=== PATIENT | female | born 1990 | race Caucasian/White ===

== ENCOUNTER → 2018-01-27 09:58 | Outpatient (CLI) | payer OTHER, SELFPAY ==
[2018-01-27 10:38] LABS: Appearance Urine UA CLEAR; Bilirubin Urine UA NEGATIVE (NEGATIVE); Color Urine UA YELLOW; Glucose Urine UA NEGATIVE (Normal); Ketones Urine UA NEGATIVE (NEGATIVE); Leukocyte Esterase Urine UA NEGATIVE (NEGATIVE); Nitrite Urine UA Negative (Negative); Occult Blood Urine UA NEGATIVE (Negative); Protein Urine UA NEGATIVE (Negative); Specific Gravity Urine UA <=1.005 (1.000-1.035); Urobilinogen Urine UA 0.2 E.U./dL (0.2); pH Urine UA 6.5 (4.5-8.0)
[2018-01-27 10:54] LABS: Hemoglobin A1C% w Est Avg Glu 5.2 % (4.0-6.0)
[2018-01-27 11:00] LABS: Add Manual Diff / Slide Review NO; Basophils Percent Auto 0.5 % (0-2); Eosinophils Percent Auto 0.6 % (2-4); Hematocrit 38.9 % (36-46); Hemoglobin 13.5 g/dL (12.0-16.0); Lymphocytes Percent Auto 30.9 % (25-40); Mean Corpuscular HGB Conc 34.6 % (30-36); Mean Corpuscular Hemoglobin 30.8 PG (26-34); Mean Corpuscular Volume 88.9 fL (80-100); Neutrophils Absolute Auto 5000 /uL (3000-5900); Platelet Count 234 X10^3/uL (150-400); Red Blood Cell Count 4.38 X10^6/uL (4.0-5.2); Red Cell Distribution Width 12.7 % (11.6-14.8); White Blood Cell Count 8.2 X10^3/uL (4.5-11.0)
[2018-01-27 11:20] LABS: Glucose 87 mg/dL (70-100)
[2018-01-27 11:51] LABS: Hepatitis B Surface Antigen NEGATIVE s/c (NEGATIVE); Rubella Antibody IgG 11.8 IU/mL (>15)
[2018-01-27 12:14] LABS: HIV 1 and 2 Antibody NEGATIVE (NEGATIVE); Hep C Virus Ab w/Reflex Quant NEGATIVE s/c (NEGATIVE)
[2018-01-31 14:25] LABS: HSV 2 IGG AB < 0.90 index (< 0.90); HSV1IGG < 0.90 index (< 0.90)
[2018-02-02 12:23] LABS: Rapid Plasma Reagin NON-REACTIVE
== END ==
DX: Z34.01 Encounter for supervision of normal first pregnancy, first trimester (principal); Z3A.01 Less than 8 weeks gestation of pregnancy
CPT/HCPCS: 36415; 80055; 81003; 82947; 83036; 86695; 86696; 86703; 86787; 86803; 86850; 86900; 86901; 87086

== ENCOUNTER → 2018-02-27 11:25 | Outpatient (CLI) | payer OTHER, MEDICAID, SELFPAY | DX: Z3A.12 12 weeks gestation of pregnancy (principal) | CPT/HCPCS: 36415; 84163; 84702 ==

== ENCOUNTER → 2018-03-27 10:52 | Outpatient (CLI) | payer OTHER, SELFPAY ==
[2018-03-29 14:05] LABS: Sequential Screen 2nd Trimeste SCREEN NEGATIVE
== END ==
DX: Z34.02 Encounter for supervision of normal first pregnancy, second trimester (principal)
CPT/HCPCS: 36415; 86336

== ENCOUNTER 2018-04-14 16:08 | Emergency (ER) | payer OTHER, MEDICAID, SELFPAY ==
[2018-04-14 16:15] VITALS: BP 101/63; PULSE 57; RESP 16; O2SAT 100; BMI 22.4
--- NOTE | 2018-04-14 16:41 | PC.NURSE ---
generalized abd pain/cramping with nausea/vomiting/diarrhea began 5 days ago reports approx 19 wks preg denies dysuria/spotting/injury/fever abd difusely tender, mild
--- NOTE | 2018-04-14 16:53 | ED_ITS ---
HPI - Nausea/Vomiting/Diarrhea <EMPERATRIZ Ro - Last Filed: 04/14/18 22:28> General Chief complaint: Nausea/Vomiting/Diarrhea Stated complaint: 19 WKS STOMACH CRAMPING HAD FOOD POS Time Seen by Provider: 04/14/18 16:41 Source: patient Mode of arrival: ambulatory Limitations: no limitations History of Present Illness HPI Narrative: 27-year-old healthy female that is a nonsmoker currently 1 para 0 here for complaint of nausea vomiting and diarrhea over the past few days. She reports having lower abdominal pain to suprapubic region. She denies having any recent fever or chills. She denies any flank pain. No urinary symptoms. Decreased p.o. intake due to nausea and vomiting. She denies any vaginal discharge or bleeding. She is currently being followed by Dr. Attila CAMARGO. She denies any complications with the . MD complaint: nausea, vomiting and diarrhea Related Data Home Medications Medication Instructions Recorded Confirmed 1 tab PO DAILY 01/27/18 01/27/18 vitamin,calcium,uaykbcgg-yvfl-pudou acid tablet Previous Rx's Medication Instructions Recorded cephalexin 500 mg PO QID #28 cap 04/14/18 ondansetron 4 mg PO TID PRN #10 tab 04/14/18 Allergies Allergy/AdvReac Type Severity Reaction Status Date / Time No Known Drug Allergies Allergy Verified 04/14/18 16:15 Review of Systems <EMPERATRIZ Ro - Last Filed: 04/14/18 22:28> Constitutional Denies chills, Denies fever(s), Denies lethargy and Denies weakness Eyes Denies change in vision, Denies eye discharge, Denies irritation and Denies loss of vision ENT Ears, Nose, Mouth, and Throat: Denies change in voice, Denies neck pain and Denies sore throat Cardiovascular Denies chest pain, Denies irregular heart rhythm, Denies lightheadedness, Denies palpitations, Denies dyspnea, Denies dyspnea on exertion and Denies orthopnea Respiratory Denies cough, Denies dyspnea, Denies dyspnea on exertion and Denies wheezing Gastrointestinal Gastrointestinal: Reports abdominal pain, Denies change in bowel habits, Reports diarrhea, Denies nausea and Reports vomiting Genitourinary Denies hematuria, Denies flank pain, Denies urinary incontinence and Denies urinary urgency Musculoskeletal Denies neck pain Integumentary/Breasts Denies pruritus, Denies erythema, Denies rash and Denies wounds Neurologic Denies confusion, Denies loss of vision and Denies weakness Psychiatric Denies anxiety, Denies confusion, Denies depression, Denies homicidal ideation and Denies suicidal ideation Endocrine Denies palpitations Hematologic/Lymphatic Denies easy bruising Allergic/Immunologic Denies wheezing Exam <EMPERATRIZ Ro - Last Filed: 04/14/18 22:28> Initial Vital Signs Initial Vital Signs: Vital Signs Pulse Rate 57 L 04/14/18 16:15 Respiratory Rate 16 04/14/18 16:15 Blood Pressure 101/63 04/14/18 16:15 Pulse Oximetry 100 04/14/18 16:15 Const General: cooperative and well developed Nutritional Appearance: well nourished Orientation: alert, awake, oriented x3 and not confused HENVT Mouth: oral mucosae normal and moist mucous membranes Eyes General: appearance normal, both eyes and all related structures Eyelids: eyelids normal Conjunctivae: conjunctivae normal Sclera: sclerae normal Pupils: PERRL EOM: EOM intact bilaterally Resp Effort & Inspection: normal respiratory effort, able to speak in complete sentences, no respiratory distress and no use of accessory muscles Auscultation: clear to auscultation bilaterally, no rales, no rhonchi and no wheezes Cardio Rate: regular rate Rhythm: regular rhythm Heart Sounds: no click, no gallops, no murmurs and no rubs Pulses: normal peripheral pulses GI Inspection: non-distended Palpation: soft, no hepatosplenomegaly, No guarding, No pulsatile mass and tender (Tenderness suprapubic region) Auscultation: normal bowel sounds General: No CVA tenderness Skin General: no rashes or lesions noted, No jaundice and No petechiae Neuro General: alert, oriented x3, gait normal and no focal motor deficits Speech: speech normal <Caleb Ott DO - Last Filed: 04/15/18 07:07> Initial Vital Signs Initial Vital Signs: Vital Signs Pulse Rate 57 L 04/14/18 16:15 Respiratory Rate 16 04/14/18 16:15 Blood Pressure 101/63 04/14/18 16:15 Pulse Oximetry 100 04/14/18 16:15 Course <EMPERATRIZ Ro - Last Filed: 04/14/18 22:28> Orders Ordered: Discontinued Medications Sodium Chloride (Normal Saline 0.9%) 1,000 mls @ 1,000 mls/hr IV BOLUS ONE Stop: 04/14/18 18:05 Last Infusion: 04/14/18 18:11 Dose: 0 mls/hr Admin: 04/14/18 17:12 Dose: 1,000 mls/hr Ondansetron HCl (Zofran) 4 mg IV NOW ONE Stop: 04/14/18 17:15 Last Admin: 04/14/18 17:14 Dose: 4 mg Vital Signs - 8 hr 04/14/18 16:15 04/14/18 18:28 Pulse Rate 57 L 59 L Respiratory Rate 16 18 Blood Pressure 101/63 95/64 Pulse Oximetry 100 99 <Caleb Ott DO - Last Filed: 04/15/18 07:07> Orders Ordered: Discontinued Medications Sodium Chloride (Normal Saline 0.9%) 1,000 mls @ 1,000 mls/hr IV BOLUS ONE Stop: 04/14/18 18:05 Last Infusion: 04/14/18 18:11 Dose: 0 mls/hr Admin: 04/14/18 17:12 Dose: 1,000 mls/hr Ondansetron HCl (Zofran) 4 mg IV NOW ONE Stop: 04/14/18 17:15 Last Admin: 04/14/18 17:14 Dose: 4 mg Vital Signs - 8 hr 04/14/18 16:15 04/14/18 18:28 Pulse Rate 57 L 59 L Respiratory Rate 16 18 Blood Pressure 101/63 95/64 Pulse Oximetry 100 99 MDM - Nausea/Vomiting/Diarrhea <EMPERATRIZ Ro - Last Filed: 04/14/18 22:28> Lab Data Result diagrams: 04/14/18 17:00 04/14/18 17:00 Lab Results 04/14/18 04/14/18 04/14/18 Range/Units 16:46 17:00 17:00 WBC 13.2 H (4.5-11.0) X10^3/uL RBC 3.89 L (4.0-5.2) X10^6/uL Hgb 12.0 (12.0-16.0) g/dL Hct 36.0 (36-46) % MCV 92.6 (80-100) fL MCH 30.9 (26-34) PG MCHC 33.4 (30-36) % RDW 13.5 (11.6-14.8) % Plt Count 192 (150-400) X10^3/uL Neut % (Auto) 78.0 H (50-75) % Lymph % (Auto) 15.9 L (25-40) % King % (Auto) 5.7 (3-14) % Eos % (Auto) 0.2 L (2-4) % Baso % (Auto) 0.2 (0-2) % Neut # (Auto) 57061 H (6198-5762) /uL Sodium 136 L (137-145) mmol/L Potassium 3.4 (3.4-5.1) mmol/L Chloride 101 (98-107) mmol/L Carbon Dioxide 24 (22-32) mmol/L BUN 7 (7-17) mg/dL Creatinine 0.50 L (0.52-1.04) mg/dL Estimated GFR > 60.0 (>60) mL/min BUN/Creatinine Ratio 14.0 (6-22) Glucose 90 (70-100) mg/dL Calcium 9.2 (8.4-10.2) mg/dL Total Bilirubin 0.2 (0.2-1.3) mg/dL AST 22 (14-36) IU/L ALT 23 (9-52) IU/L Alkaline Phosphatase 38 (38-126) U/L Total Protein 7.0 (6.3-8.2) g/dL Albumin 4.1 (3.5-5.0) g/dL Globulin 2.9 (1.7-4.1) g/dL Albumin/Globulin Ratio 1.4 (1.0-2.8) Urine Color Yellow Urine Appearance Cloudy Urine pH 7.0 (4.5-8.0) Ur Specific Myra 1.020 (1.000-1.035) Urine Protein Negative (Negative) Urine Glucose (UA) Negative (Normal) g/dL Urine Ketones Negative (NEGATIVE) Urine Occult Blood Negative (Negative) Urine Nitrate Negative (Negative) Urine Bilirubin Negative (NEGATIVE) Urine Urobilinogen 0.2 (0.2) E.U./dL Ur Leukocyte Esterase Trace H (NEGATIVE) Urine RBC None seen (0-5/HPF) Urine WBC 1-5/hpf (0-5/HPF) Ur Squamous Epith Cells 1-5 /hpf Amorphous Sediment 2+ Urine Bacteria Moderate (10-30) H (None) Ur Culture Indicated? Specimen cultured Micro UA Comment Not Reportable MDM Narrative Medical decision making narrative: White count shows elevation at 13.2 most likely secondary to a . Neutrophils elevated at 10 K. she was given fluids and Zofran in the emergency room which helped her felt better. She was able tolerate p.o. fluids. Signs and symptoms presents as a viral illness. However urinalysis does show urinary tract infection will treat with Keflex. She is prescribed Zofran to help with the nausea vomiting. Plenty of fluids and rest. [id number] Tylenol as needed for any discomfort. heart tones were obtained at 166. For any worsening symptoms return to the emergency room. <Caleb Ott DO - Last Filed: 04/15/18 07:07> Lab Data Lab Results 04/14/18 04/14/18 04/14/18 Range/Units 16:46 17:00 17:00 WBC 13.2 H (4.5-11.0) X10^3/uL RBC 3.89 L (4.0-5.2) X10^6/uL Hgb 12.0 (12.0-16.0) g/dL Hct 36.0 (36-46) % MCV 92.6 (80-100) fL MCH 30.9 (26-34) PG MCHC 33.4 (30-36) % RDW 13.5 (11.6-14.8) % Plt Count 192 (150-400) X10^3/uL Neut % (Auto) 78.0 H (50-75) % Lymph % (Auto) 15.9 L (25-40) % King % (Auto) 5.7 (3-14) % Eos % (Auto) 0.2 L (2-4) % Baso % (Auto) 0.2 (0-2) % Neut # (Auto) 70965 H (0270-6450) /uL Sodium 136 L (137-145) mmol/L Potassium 3.4 (3.4-5.1) mmol/L Chloride 101 (98-107) mmol/L Carbon Dioxide 24 (22-32) mmol/L BUN 7 (7-17) mg/dL Creatinine 0.50 L (0.52-1.04) mg/dL Estimated GFR > 60.0 (>60) mL/min BUN/Creatinine Ratio 14.0 (6-22) Glucose 90 (70-100) mg/dL Calcium 9.2 (8.4-10.2) mg/dL Total Bilirubin 0.2 (0.2-1.3) mg/dL AST 22 (14-36) IU/L ALT 23 (9-52) IU/L Alkaline Phosphatase 38 (38-126) U/L Total Protein 7.0 (6.3-8.2) g/dL Albumin 4.1 (3.5-5.0) g/dL Globulin 2.9 (1.7-4.1) g/dL Albumin/Globulin Ratio 1.4 (1.0-2.8) Urine Color Yellow Urine Appearance Cloudy Urine pH 7.0 (4.5-8.0) Ur Specific Myra 1.020 (1.000-1.035) Urine Protein Negative (Negative) Urine Glucose (UA) Negative (Normal) g/dL Urine Ketones Negative (NEGATIVE) Urine Occult Blood Negative (Negative) Urine Nitrate Negative (Negative) Urine Bilirubin Negative (NEGATIVE) Urine Urobilinogen 0.2 (0.2) E.U./dL Ur Leukocyte Esterase Trace H (NEGATIVE) Urine RBC None seen (0-5/HPF) Urine WBC 1-5/hpf (0-5/HPF) Ur Squamous Epith Cells 1-5 /hpf Amorphous Sediment 2+ Urine Bacteria Moderate (10-30) H (None) Ur Culture Indicated? Specimen cultured Micro UA Comment Not Reportable Discharge Plan Departure Patient Disposition: Home Clinical Impression: Gastroenteritis, Urinary tract infection Discharge Date/Time: 04/14/18 18:28 Interventions: ED Discharge Assessment Last Done: 04/14/18 18:28 Instructions: Nausea and Vomiting-Adult Activity Restrictions/Additional Instructions: Signs and symptoms presents as a viral illness causing the nausea vomiting diarrhea. Due to a viral infection signs and symptoms will take time to resolve. The urinalysis indicates urinary tract infection. You are prescribed an antibiotic to treat the urinary tract infection use as directed. You are prescribed and anti nausea medication called Zofran use as directed. Plenty of fluids and rest. Follow up with OBGYN in the next couple days for re- evaluation. For any worsening symptoms return to the emergency room. Prescriptions: New cephalexin 500 mg capsule 500 mg PO QID Qty: 28 RF: 0 ondansetron 4 mg tablet,disintegrating 4 mg PO TID PRN (Reason: nausea and vomiting) Qty: 10 RF: 0 No Action prenat.vits,jackson,yee-zmzs-uafbp [ Vitamin] tablet 1 tab PO DAILY RF: 0 Referrals: [facility] [Provider Group] <Caleb Ott DO - Last Filed: 04/15/18 07:07> [facility] ED Attending Rakan Attestation: I was available for consultation during this patient's emergency department encounter
[2018-04-14 16:58] LABS: RBC Urine None Seen (0-5/HPF)
[2018-04-14 16:59] LABS: Appearance Urine UA CLOUDY; Bilirubin Urine UA NEGATIVE (NEGATIVE); Color Urine UA YELLOW; Glucose Urine UA NEGATIVE (Normal); Ketones Urine UA NEGATIVE (NEGATIVE); Leukocyte Esterase Urine UA TRACE (NEGATIVE); Nitrite Urine UA NEGATIVE (Negative); Occult Blood Urine UA NEGATIVE (Negative); Protein Urine UA NEGATIVE (Negative); Urobilinogen Urine UA 0.2 E.U./dL (0.2)
[2018-04-14 17:07] LABS: Amorphous Sediment Urine 2+; Bacteria Urine Moderate (10-30); Squamous Epithelial Cell Urine 1-5 /HPF; WBC Urine 1-5/HPF (0-5/HPF)
[2018-04-14 17:08] LABS: Culture Indicated Urine Specimen Cultured
[2018-04-14 17:10] LABS: Add Manual Diff / Slide Review NO; Basophils Percent Auto 0.2 % (0-2); Eosinophils Percent Auto 0.2 % (2-4); Lymphocytes Percent Auto 15.9 % (25-40); Mean Corpuscular HGB Conc 33.4 % (30-36); Mean Corpuscular Hemoglobin 30.9 PG (26-34); Mean Corpuscular Volume 92.6 fL (80-100); Monocytes Percent Auto 5.7 % (3-14); Neutrophils Absolute Auto 10300 /uL (3000-5900); Platelet Count 192 X10^3/uL (150-400); Red Blood Cell Count 3.89 X10^6/uL (4.0-5.2); Red Cell Distribution Width 13.5 % (11.6-14.8); White Blood Cell Count 13.2 X10^3/uL (4.5-11.0)
[2018-04-14] MEDS: SODIUM CHLORIDE 0.9% 1,000 ML 1000 ML IV (17:12)
[2018-04-14] MEDS: ONDANSETRON 4 MG/2 ML INJ IV (17:14)
[2018-04-14 17:21] LABS: Alanine Aminotransferase 23 IU/L (9-52); Albumin 4.1 g/dL (3.5-5.0); Albumin Globulin Ratio 1.4 (1.0-2.8); Alkaline Phosphatase 38 U/L (38-126); Aspartate Aminotransferase 22 IU/L (14-36); Bilirubin Total 0.2 mg/dL (0.2-1.3); Blood Urea Nitrogen 7 mg/dL (7-17); Calcium 9.2 mg/dL (8.4-10.2); Carbon Dioxide 24 mmol/L (22-32); Chloride 101 mmol/L (98-107); Estimated Glomerular Filt Rate > 60.0 mL/min (>60); Globulin 2.9 g/dL (1.7-4.1); Glucose 90 mg/dL (70-100); HEMOLYSIS < 15 (0-50); Potassium 3.4 mmol/L (3.4-5.1); Sodium 136 mmol/L (137-145)
[2018-04-14 18:28] VITALS: BP 95/64; PULSE 59; RESP 18; O2SAT 99
== END 2018-04-14 18:28 | disposition home or self-care (01) ==
PROVIDERS: Emergency Provider Nurse Practitioner Family
DX: O99.612 Diseases of the digestive system complicating pregnancy, second trimester (principal); O23.42 Unspecified infection of urinary tract in pregnancy, second trimester; Z3A.19 19 weeks gestation of pregnancy
CPT/HCPCS: 80053; 81001; 85025; 87086; 96361; 96374; 99283; 99284; J2405

== ENCOUNTER → 2018-05-26 11:17 | Outpatient (CLI) | payer OTHER, MEDICAID, SELFPAY ==
[2018-05-26 12:57] LABS: Hematocrit 36.1 % (36-46); Hemoglobin 12.1 g/dL (12.0-16.0)
[2018-05-26 13:05] LABS: GTT (PREG) 1 Hour PP 50gm Dose 75 mg/dL (76-139)
== END ==
PROVIDERS: PCP Family Medicine Adult Medicine
DX: Z34.02 Encounter for supervision of normal first pregnancy, second trimester (principal)
CPT/HCPCS: 36415; 82950; 85014; 85018

== ENCOUNTER → 2018-08-14 11:17 | Outpatient (CLI) | payer OTHER, MEDICAID, SELFPAY ==
[2018-08-15 10:30] LABS: Strep Grp B PCR NEG for Grp B Strep
== END ==
PROVIDERS: PCP Family Medicine Adult Medicine
DX: Z34.03 Encounter for supervision of normal first pregnancy, third trimester (principal)
CPT/HCPCS: 87653

== ENCOUNTER 2018-08-28 02:04 | Inpatient (IN) | payer OTHER, MEDICAID, SELFPAY ==
[2018-08-28] MEDS: LACTATED RINGERS 1,000 ML 100 ML IV (03:30)
[2018-08-28 03:54] LABS: Add Manual Diff / Slide Review NO; Basophils Absolute Auto 0 /uL (0-100); Basophils Percent Auto 0.4 % (0-2); Eosinophils Absolute Auto 200 /uL (0-450); Eosinophils Percent Auto 1.7 % (2-4); Hematocrit 36.8 % (36-46); Hemoglobin 12.4 g/dL (12.0-16.0); Lymphocytes Absolute Auto 3100 /uL (1100-4500); Lymphocytes Percent Auto 28.4 % (25-40); Mean Corpuscular HGB Conc 33.7 % (30-36); Mean Corpuscular Hemoglobin 31.2 PG (26-34); Mean Corpuscular Volume 92.7 fL (80-100); Monocytes Absolute Auto 1000 /uL (0-900); Monocytes Percent Auto 9.2 % (3-14); Neutrophils Absolute Auto 6600 /uL (1500-7000); Neutrophils Percent Auto 60.3 % (50-75); Platelet Count 142 X10^3/uL (150-400); Red Blood Cell Count 3.97 X10^6/uL (4.0-5.2); Red Cell Distribution Width 12.8 % (11.6-14.8); White Blood Cell Count 10.9 X10^3/uL (4.5-11.0)
--- NOTE | 2018-08-28 07:40 | P.HPOB_ITS ---
OB HPI Date/Time Date of admission: 08/28/18 Date Patient Seen: 08/28/18 Time Patient Seen: 07:33 History of Present Condition Chief complaint: EVALUATION OF LABOR : 1 Para: 0 Estimated Date of Delivery: 09/09/18 Estimated Gestational Age (weeks): 38 Narrative: Isadora Kern is a 28 year old female one para 0 who presents with spontaneous rupture of membranes. Indications Indication for induction OB: other (Premature spontaneous rupture membranes) Other reason(s) for admission: Premature spontaneous rupture membrane History of Present care: good care Dating criteria: LMP confirmed by 1st trimester US Ultrasounds: normal 1st trimester US and normal mid trimester US Obstetrical complications: none Medical complications: none Narrative: The patient is a 27-year-old white female one para 0 who presents with spontaneous rupture of membranes. The patient's antepartum course was uneventful. The blood pressures remained normotensive, urines remain negative for glucose and protein and she had adequate fundal growth. Her weight one from 136-164 lb. Preadmission Labs Blood type: A (+) positive -: Antibody screen: negative, Cystic fibrosis screen: unknown, GBS status: negative, HBsAG: negative, HIV: negative, HSV 1: negative, HSV 2: negative and RPR/VDLR: negative -: Chlamydia screen: detected (Negative) and Gonorrhea screen: detected (Negative) -: Rubella: immune and Varicella: immune PAP: Normal Integrated screen: Negative Quad screen: Normal (Not done) 1 hr GTT: 76 Prior (ies) History: [place] Evaluation Evaluation Baseline heart rate: 130 Variability: Average (6-10) monitor accelerations: Present monitor decelerations: Absent Contraction Frequency (minutes): 6 Category of Tracing: I Cervical dilation (cm): 1 Cervical effacement (%): 50 station: -2 Laboratory results: Laboratory Tests 08/28/18 08/28/18 03:30 03:30 WBC 10.9 RBC 3.97 L Hgb 12.4 Hct 36.8 MCV 92.7 MCH 31.2 MCHC 33.7 RDW 12.8 Plt Count 142 L Neut % (Auto) 60.3 Lymph % (Auto) 28.4 [place] % (Auto) 9.2 Eos % (Auto) 1.7 L Baso % (Auto) 0.4 Neut # (Auto) 6600 Lymph # (Auto) 3100 [place] # (Auto) 1000 H Eos # (Auto) 200 Baso # (Auto) 0 Blood Type A Positive Antibody Screen Negative Non-invasive Membranes Rupture Test: positive PFSH Social History Smoking Status: Never smoker Social History Smoking Status: Never smoker Meds Home Medications Medication Instructions Recorded Confirmed Type 1 tab PO DAILY 01/27/18 05/28/18 History vitamin,calcium,fbxcrapy-ynbq-mqfgg acid tablet Double Electric Breast Pump #1 ea 07/05/18 Rx Allergies Allergy/AdvReac Type Severity Reaction Status Date / Time No Known Drug Allergies Allergy Verified 05/28/18 15:50 Review of Systems Review of Systems All systems reviewed & are unremarkable except as noted in HPI and below Exam Vital Signs (past 8 hours): Oxygen Delivery Method Room Air Const General: cooperative and healthy appearing [facility] Head: normal to inspection Ears: hearing grossly normal bilaterally Nose: external nose normal Face and sinus: normal facial exam Mouth: oral mucosae normal, lip normal, tongue normal and moist mucous membranes Teeth and gingiva: dentition normal Throat: posterior oropharynx normal Eyes General: appearance normal, both eyes and all related structures Neck Neck: normal visual inspection and full ROM Chest Chest: normal inspection of the chest and normal palpation of entire chest wall Breast inspection: normal inspection of the breasts and normal inspection of the axillae Breast Palpation: normal palpation of the breasts and normal palpation of the axillae Resp Effort & Inspection: normal respiratory effort Auscultation: clear to auscultation bilaterally Cardio Palpation: normal PMI Rate: regular rate Rhythm: regular rhythm Heart Sounds: S1 normal and S2 normal GI Inspection: normal to inspection Palpation: soft and no hepatosplenomegaly Percussion: normal to percussion Auscultation: normal bowel sounds Manual OB Exam: dilated 1, effaced 50% and station -2 Uterus Location (Fundal Height): 38 Presentation: vertex Amniotic Fluid: clear Back/Spine/Pelvis Thoracic/Lumbar Spine: thoracic and lumbar spine normal to inspection Skin General: no rashes or lesions noted Neuro General: alert, oriented x3, tone normal and moves all extremities Cognition: normal cognition Speech: speech normal Gait: normal gait Motor: muscle tone normal throughout Sensory Exam: no sensory deficits noted Extrem General: normal to inspection and normal exam except as noted Psych Appearance: grossly normal and well kempt Mental Status: mental status grossly normal Speech and Movement: speech and movement normal Objective Labs Result Diagrams: 08/28/18 03:30 Labs: Laboratory Results - last 24 hr 08/28/18 08/28/18 03:30 03:30 WBC 10.9 RBC 3.97 L Hgb 12.4 Hct 36.8 MCV 92.7 MCH 31.2 MCHC 33.7 RDW 12.8 Plt Count 142 L Neut % (Auto) 60.3 Lymph % (Auto) 28.4 [place] % (Auto) 9.2 Eos % (Auto) 1.7 L Baso % (Auto) 0.4 Neut # (Auto) 6600 Lymph # (Auto) 3100 [place] # (Auto) 1000 H Eos # (Auto) 200 Baso # (Auto) 0 Blood Type A Positive Antibody Screen Negative Assessment and Plan Assessment and Plan Assessment and Plan narrative: 38 week intrauterine Spontaneous premature rupture membranes Unfavorable cervix IV Pitocin induction of labor Time Spent with Patient Total time spent with greater than 50% in coordination of care (as documented) at patient's floor/unit and/or counseling patient:: 15-24 minutes
[2018-08-28] MEDS: OXYTOCIN PREMIX 30 UNIT/500 ML PLAST..BAG IV (08:20)
[2018-08-28] MEDS: CEFOTETAN 2 GM/50 ML PIGGYBACK IV (11:53)
[2018-08-28] MEDS: LACTATED RINGERS 1,000 ML 999 ML IV (13:20)
--- NOTE | 2018-08-28 16:40 | PM.OBPRVD ---
Delivery date: 08/28/18 Intrapartal events: None Cervical ripening method: none Induction method: per pitocin protocol Delivery monitor: external FHT and external uterine Route of delivery: Delivery repair: chromic Estimated blood loss (mL): 200 Anesthesia type: Epidural Complications: None Narrative: Patient is a 28-year-old white female one now para one who presented with spontaneous rupture of the membranes. The patient had an unfavorable cervix at 1 cm and 50%. Pitocin was begun patient making rapid progress to complete and delivered spontaneously a live born male infant with scores of eight at 1 minutes and nine at 5 minutes in good condition. patient sustained a second-degree perineal tear. There are no cervical or vaginal lacerations. The tear was repaired with two 0 chromic in the normal fashion. placenta delivered spontaneously. Cord had three vessels. Estimated blood loss was 200 Plan for aftercare: Routine
[2018-08-28] MEDS: IBUPROFEN 600 MG TABLET PO (18:26)
[2018-08-28] MEDS: DERMOPLAST SPRAY 20% 60 ML 1 SPRAY TOP (18:27)
[2018-08-29 00:19] VITALS: TEMP 36.8
[2018-08-29] MEDS: OXYCODONE/ACETAMINOPHEN 5/325 TABLET 2 TAB PO (00:19)
[2018-08-29] MEDS: IBUPROFEN 600 MG TABLET PO ×2 (00:33→09:31)
[2018-08-29 06:45] LABS: Hematocrit 34.3 % (36-46); Hemoglobin 11.6 g/dL (12.0-16.0)
--- NOTE | 2018-08-29 07:11 | PM.OBDS.1 ---
Discharge Providers Date of admission: 08/28/18 02:04 Discharge Date: 08/29/18 Primary care physician: Milad Molina DO Consults: 08/28/18 17:02 Consult to Handkerchief Presser Routine Comment: Discharge provider: Loi Aiken MD Summary Date Patient Seen: 08/29/18 Time Patient Seen: 07:12 Procedures: Epidural anesthesia Spontaneous vaginal delivery Repair of second-degree tear Hospital Course: The patient is a 28-year-old white female one now para one who presented with spontaneous rupture of membranes at 38 weeks of . her cervix was only 1 cm dilated. Pitocin was begun. Patient made rapid progress and by 4:00 p.m. was complete and pushing. She delivered spontaneously an 8 lb 7 oz live-born male with scores eight at 1 minute nine at 5 minutes in good condition. she sustained a second-degree perineal tear which was repaired in a two 0 chromic suture. she had no cervical or vaginal lacerations. Placenta delivered spontaneously the cord had three vessels. Post delivery the patient did well. she remained afebrile stable vital signs and was progressively elevated ambulated Peripartum Data Infant Delivery Method: Natural Vaginal Laceration description: Perineal - 2nd Degree complications: none Status at Discharge Cognitive/behavioral status at discharge: oriented Functional status at discharge: independent ambulation Overall status at discharge: patient is back to baseline Time Spent with Patient Total time spent providing and/or coordinating discharge services: Less than 30 minutes Objective Labs Result Diagrams: 08/29/18 06:30 Labs: Laboratory Results - last 24 hr 08/29/18 06:30 Hgb 11.6 L Hct 34.3 L Exam Vital Signs (past 8 hours): - 08/29/18 00:19 Temperature 98.2 F Oxygen Delivery Method Room Air Narrative Exam Narrative: Fundus U minus two Lochia scant Perineum without ecchymosis Discharge Plan Discharge Plan Patient Disposition: Home Discharge Med Rec/Prescriptions Prescriptions: New Dermoplast (with menthol) 20-0.5 % Aerosol 1 spray topical Q1HR PRN (Reason: perineal pain) Qty: 1 RF: 0 oxycodone-acetaminophen 5-325 mg Tablet 2 tab PO Q4HR Qty: 10 RF: 0 ibuprofen 600 mg Tablet 600 mg PO Q6HR PRN (Reason: Pain, Mild (1-3)) Qty: 20 RF: 0 docusate sodium 250 mg Capsule 250 mg PO DAILY Qty: 20 RF: 0 Nji-T-Zuwedx Cream 1 applic topical PRN PRN (Reason: Tenderness) Qty: 1 RF: 0 docusate sodium 100 mg capsule 100 mg PO BID Qty: 14 RF: 0 ibuprofen 600 mg tablet 600 mg PO TID-QID PRN (Reason: pain) Qty: 20 RF: 0 Continued Double Electric Breast Pump Qty: 1 RF: 0 prenat.vits,jackson,vdk-slac-rzpff [ Vitamin] tablet 1 tab PO DAILY RF: 0 Follow up/Referrals: Milad Molina DO [Primary Care Provider] - Provider Discharge Instructions Diet: Diet as Tolerated Activity: up ad jaison Other treatments: perineal care Skin/Wound/Dressing Care Report to your healthcare provider any signs of infection, such as:: chills, fever, increased pain, unusual drainage and unusual redness Visit Report/Discharge Packet Stand Alone Forms: Discharge: Care Visit Report Forms: Stroke Signs & Symptoms Discharge Data Primary Care Provider: Milad Molina Attending Provider: Loi Aiken [place] Date/Time: 08/28/18 02:04
[2018-08-29] MEDS: DOCUSATE 250 MG CAPSULE PO (09:28)
[2018-08-29 11:24] VITALS: BP 117/70; PULSE 80; RESP 20; TEMP 36.8
[2018-08-29] MEDS: MEASLES,MUMPS,RUBELLA VACC/PF 0.5 ML VIAL SUBCUT (16:25)
== END 2018-08-29 17:41 | disposition home or self-care (01) | DRG 560 ==
PROVIDERS: PCP Family Medicine Adult Medicine
DX: O42.02 Full-term premature rupture of membranes, onset of labor within 24 hours of rupture (principal); Z3A.38 38 weeks gestation of pregnancy; Z37.0 Single live birth; O70.1 Second degree perineal laceration during delivery
CPT/HCPCS: 01967; 36415; 59050; 59409; 84112; 85014; 85018; 85025; 86850; 86900; 86901; G0379; J2590

== ENCOUNTER → 2020-04-28 08:43 | Outpatient (CLI) | payer OTHER, MEDICAID, SELFPAY ==
[2020-04-28 10:13] LABS: Add Manual Diff / Slide Review NO; Basophils Absolute Auto 0 /uL (0-100); Basophils Percent Auto 0.4 % (0-2); Eosinophils Absolute Auto 0 /uL (0-450); Eosinophils Percent Auto 0.6 % (2-4); Hematocrit 39.5 % (36-46); Hemoglobin 13.1 g/dL (12.0-16.0); Lymphocytes Absolute Auto 2200 /uL (1100-4500); Lymphocytes Percent Auto 28.9 % (25-40); Mean Corpuscular HGB Conc 33.3 % (30-36); Mean Corpuscular Hemoglobin 30.5 PG (26-34); Mean Corpuscular Volume 91.6 fL (80-100); Monocytes Absolute Auto 500 /uL (0-900); Monocytes Percent Auto 6.5 % (3-14); Neutrophils Absolute Auto 4900 /uL (1500-7000); Neutrophils Percent Auto 63.6 % (50-75); Platelet Count 231 X10^3/uL (150-400); Red Blood Cell Count 4.31 X10^6/uL (4.0-5.2); Red Cell Distribution Width 12.8 % (11.6-14.8); White Blood Cell Count 7.7 X10^3/uL (4.5-11.0)
[2020-04-28 17:25] LABS: Hepatitis B Surface Antigen NEGATIVE s/c (NEGATIVE)
[2020-04-28 17:31] LABS: HIV 1 & 2 Ab/Ag 4th Gen Combo NEGATIVE (NEGATIVE); Hep C Virus Ab w/Reflex Quant NEGATIVE s/c (NEGATIVE)
[2020-04-29 07:44] LABS: RPR Screen Non Reactive (Non Reactive)
[2020-04-29 10:27] LABS: Varicella IgG Antibody 346 index (Immune >165)
== END ==
PROVIDERS: PCP Family Medicine Adult Medicine; Referring Provider Specialist; Visit Provider Specialist
DX: Z34.81 Encounter for supervision of other normal pregnancy, first trimester (principal)
CPT/HCPCS: 36415; 80055; 86787; 86803; 86850; 86900; 86901; 87389; 87491; 87591

== ENCOUNTER → 2020-06-17 15:29 | Outpatient (CLI) | payer OTHER, MEDICAID, SELFPAY ==
[2020-06-17 16:27] LABS: Appearance Urine UA CLEAR; Bilirubin Urine UA NEGATIVE (NEGATIVE); Color Urine UA YELLOW; Glucose Urine UA NEGATIVE (Negative); Ketones Urine UA NEGATIVE (NEGATIVE); Leukocyte Esterase Urine UA NEGATIVE (NEGATIVE); Nitrite Urine UA NEGATIVE (Negative); Occult Blood Urine UA NEGATIVE (Negative); Protein Urine UA NEGATIVE (Negative); Specific Gravity Urine UA 1.025 (1.000-1.035); Urobilinogen Urine UA 0.2 E.U./dL (0.2)
[2020-06-17 16:29] LABS: pH Urine UA 5.5 (4.5-8.0)
== END ==
PROVIDERS: PCP Family Medicine; Referring Provider Specialist; Visit Provider Specialist
DX: Z34.81 Encounter for supervision of other normal pregnancy, first trimester (principal)
CPT/HCPCS: 81003; 87077; 87086

== ENCOUNTER → 2020-07-10 13:02 | Outpatient (CLI) | payer OTHER, MEDICAID, SELFPAY ==
[2020-07-12 20:07] LABS: AFP, Serum 33.6 ng/mL (.); Estriol, Free 1.22 ng/mL (.); Inhibin A, Dimeric 134.18 pg/mL (.); Inhibin A, MoM 0.78 (.); Maternal Ethnicity Caucasian (.); Maternal Weight 147 lbs (.); Number of Fetuses No (.); OSBR Risk 1 IN 10000 (.); Results Report (.); Test Results *Screen Negative* (.); hCG, Serum 69407 mIU/mL (.)
== END ==
PROVIDERS: PCP Family Medicine; Referring Provider Specialist; Visit Provider Specialist
DX: Z34.82 Encounter for supervision of other normal pregnancy, second trimester (principal); Z3A.18 18 weeks gestation of pregnancy
CPT/HCPCS: 36415; 82105; 82677; 84702; 86336

== ENCOUNTER → 2020-07-29 10:44 | Outpatient (CLI) | payer OTHER, MEDICAID, SELFPAY ==
--- NOTE | 2020-07-29 10:44 | DI.US.S_ITS ---
PROCEDURE: US OB >= 14 WEEKS FETUS INDICATIONS: 20 week anatomy OUTSIDE/PRIOR DATING DATA: Unknown First dating scan (date and location): 07/29/2020 . Estimated date of delivery (CALI) from first dating scan: 12/07/2020 . TECHNIQUE: Real-time scanning was performed of the fetus, with image documentation and biometric measurements. Endovaginal scanning: No COMPARISON: None. FINDINGS: General: A single living intrauterine gestation is present. Presentation: Transverse. Placenta: Placental position is fundal , without previa. Amniotic fluid index: 9.0 cm, normal range is 5-24 cm. heart rate: 155 beats per minute. Maternal cervical canal: 7.2 cm long. Normal lower limit is 2.5 cm. biometrics: Biparietal diameter: 20 weeks 6 days Head circumference: 20 weeks 4 days Abdominal circumference: 21 weeks 6 days Femur length: 21 weeks 6 days Estimated gestational age from initial scan: not applicable. Composite gestational age from present scan: 21 weeks 2 days Estimated weight and percentile: 443 g Measurement variability for biometric dating: +/- 7 days from 14 weeks to 15 weeks 6 days gestation, +/- 10 days from 16 weeks to 21 weeks 6 days gestation, +/- 2 weeks from 22 weeks to 27 weeks 6 days gestation, +/- 3 weeks for 28 weeks gestation or later. weight reference: 4500 g or EFW >90/95% is considered macrosomia or large for gestational age. EFW <10% is small for gestational age. EFW 5% or less is considered intra-uterine growth restriction. Anatomic survey: Neuro: Ventricles are non-dilated at less than 10 mm. Cisterna magna is normal at 3-11 mm. Cerebellum is normal in size and morphology. Nuchal skin fold: Normal at less than 6 mm between 14-21 weeks gestational age. Face: Nose and lips, facial profile are normal. Spine: No evidence for spina bifida. Heart: 4-chambered heart is present, with normal ventricular outflow tracts. Diaphragm: Diaphragm is intact. Stomach: Left-sided stomach is present. Kidneys: No hydronephrosis. Normal is less than 5 mm in 2nd trimester, less than 7 mm in 3rd trimester. Cord: 3-vessel cord has orthotopic insertion. Bladder: Normal in size. Extremities: All 4 extremities identified. IMPRESSION: 1. Single living IUP with composite gestational age of 21 weeks 2 days corresponding to ultrasound CALI of 07/29/2020. 2. Normal anatomic survey. Dictated by: Bill EUBANKS Interpreted: Jess Chaudhari MD on 07/29/2020 at 12:51 Approved by: Jess Chaudhari M.D. on 07/29/2020 at 17:01
== END ==
PROVIDERS: PCP Family Medicine; Referring Provider Specialist; Visit Provider Specialist
DX: Z34.82 Encounter for supervision of other normal pregnancy, second trimester (principal); Z3A.21 21 weeks gestation of pregnancy
CPT/HCPCS: 76811

== ENCOUNTER → 2020-08-26 13:14 | Outpatient (CLI) | payer OTHER, MEDICAID, SELFPAY ==
[2020-08-26 14:57] LABS: Hematocrit 34.9 % (36-46); Hemoglobin 11.6 g/dL (12.0-16.0)
[2020-08-26 16:25] LABS: GTT (PREG) 1 Hour PP 50gm Dose 130 mg/dL (76-139)
== END ==
PROVIDERS: PCP Family Medicine; Referring Provider Specialist; Visit Provider Specialist
DX: Z34.82 Encounter for supervision of other normal pregnancy, second trimester (principal); Z3A.25 25 weeks gestation of pregnancy
CPT/HCPCS: 36415; 82950; 85014; 85018

== ENCOUNTER → 2020-11-11 09:23 | Outpatient (CLI) | payer OTHER, MEDICAID, SELFPAY ==
[2020-11-12 14:08] LABS: Strep Grp B PCR NEG for Grp B Strep
== END ==
PROVIDERS: PCP Family Medicine; Visit Provider Specialist
DX: Z34.83 Encounter for supervision of other normal pregnancy, third trimester (principal); Z3A.36 36 weeks gestation of pregnancy
CPT/HCPCS: 87653

== ENCOUNTER 2020-11-22 22:38 | Outpatient (CLI) | payer OTHER, MEDICAID, SELFPAY | END 2020-11-22 23:50 | disposition home or self-care (01) | LOC: LABOR 22:43 → OB 11-25 07:36 | PROVIDERS: PCP Family Medicine; Referring Provider Obstetrics & Gynecology; Visit Provider Obstetrics & Gynecology | DX: Z03.71 Encounter for suspected problem with amniotic cavity and membrane ruled out (principal); Z3A.38 38 weeks gestation of pregnancy | CPT/HCPCS: 36415; 59025; 84112; G0378; G0379 ==

== ENCOUNTER 2020-12-05 09:52 | Inpatient (IN) | payer OTHER, MEDICAID, SELFPAY ==
--- NOTE | 2020-12-05 10:51 | PM.OBHP.1 ---
OB HPI Date/Time Date of admission: 12/05/20 Date Patient Seen: 12/05/20 Time Patient Seen: 10:55 History of Present Condition Chief complaint: EVAL OF LABOR : 2 Para: 1 Estimated Date of Delivery: 12/06/20 Estimated Gestational Age (weeks): 39 Narrative: Isadora Kern is a 30 year old female admitted with spontaneous rupture membranes not in active labor History of Present care: good care, initiated at week # (8), number of visits (13) and pounds weight gain (42) Dating criteria: LMP confirmed by 1st trimester US Ultrasounds: normal mid trimester US Obstetrical complications: none Medical complications: none Preadmission Labs Blood type: A (+) positive -: Antibody screen: negative, GBS status: negative, HBsAG: negative, HIV: negative and RPR/VDLR: negative -: Chlamydia screen: not detected and Gonorrhea screen: not detected -: Rubella: immune and Varicella: immune HCAB: negative Quad screen: Normal 1 hr GTT: 130 Prior (ies) History: 08/28/2018 38 week gestation, male , 8 lb 10 oz Evaluation Evaluation Baseline heart rate: 150 Variability: Moderate (11-25) monitor accelerations: Present Monitor Decelerations: Absent Contraction Frequency (minutes): 0 Category of Tracing: Reactive Status: Category l Cervical dilation (cm): 1 Cervical effacement (%): 20 station: -1 Comments: Gross rupture membranes [facility] Medical History (Updated 06/19/20 @ 13:14 by Kirti Lizama MD) IBS (irritable bowel syndrome) (spontaneous vaginal delivery) (~08/28/18) Surgical History (Updated 04/23/20 @ 13:55 by Radha Forrest, MICHELLE) H/O wisdom tooth extraction Family History (Updated 04/23/20 @ 13:52 by Radha Forrest RN) Mother No problems noted. Father No problems noted. Grandmother Cancer Brain tumor Grandfather Brain tumor Cancer Grandmother Cancer Bladder cancer Grandfather Myocardial infarction Family/Other Diabetes mellitus Cancer Social History marital status: household members: spouse and children pets and animals: Yes (X 1 dog) education level: college occupational status: employed current occupational exposures/hazards: Yes Previous occupational history: [employer] special melissa needs: No Smoking Status: Never smoker second hand exposure: No alcohol intake: former substance use type: does not use Meds Home Medications and Allergies Home Medications Medication Instructions Recorded Confirmed Type prenat.vits,jackson,[id number] 1 tab PO DAILY 04/23/20 12/02/20 History omeprazole 40 mg capsule,delayed 40 mg PO DAILY #30 cap 09/10/20 12/02/20 Rx release Allergies Allergy/AdvReac Type Severity Reaction Status Date / Time No Known Drug Allergies Allergy Verified 09/10/20 09:06 Review of Systems Review of Systems Narrative: Patient denies headaches, scotomata, epigastric pain. Good movement. Spontaneous rupture membranes at 6:00 a.m. without active contractions. Her only complaint is back pain. ROS: Yes All systems reviewed with the patient and are negative except as otherwise documented Assessment and Plan Assessment and Plan Assessment and Plan narrative: 39 week gestation with spontaneous rupture membranes not in active labor. Will be given Pitocin augmentation of labor. Patient is requesting epidural for pain control.
[2020-12-05 11:35] LABS: Add Manual Diff / Slide Review NO; Basophils Absolute Auto 100 /uL (0-100); Basophils Percent Auto 0.9 % (0-2); Eosinophils Absolute Auto 0 /uL (0-450); Eosinophils Percent Auto 0.1 % (2-4); Hematocrit 31.8 % (36-46); Hemoglobin 10.3 g/dL (12.0-16.0); Lymphocytes Absolute Auto 1500 /uL (1100-4500); Mean Corpuscular HGB Conc 32.3 % (30-36); Mean Corpuscular Volume 83.8 fL (80-100); Monocytes Absolute Auto 700 /uL (0-900); Monocytes Percent Auto 8.3 % (3-14); Neutrophils Absolute Auto 6400 /uL (1500-7000); Neutrophils Percent Auto 73.7 % (50-75); Platelet Count 153 X10^3/uL (150-400); Red Blood Cell Count 3.79 X10^6/uL (4.0-5.2); Red Cell Distribution Width 14.2 % (11.6-14.8); White Blood Cell Count 8.7 X10^3/uL (4.5-11.0)
[2020-12-05 11:41] VITALS: BP 125/80
[2020-12-05] MEDS: LACTATED RINGERS 1,000 ML 100 ML IV ×2 (11:45→19:50)
[2020-12-05 12:01] LABS: COVID19 - ADMIT (NP swab/PCR) Negative (Negative)
[2020-12-05] MEDS: OXYTOCIN PREMIX 30 UNIT/500 ML PLAST..BAG IV (12:17)
--- NOTE | 2020-12-05 13:09 | P.PCN_ITS ---
[facility] Pre-procedure Procedure: Continuous Lumbar Epidural for L&D Attending OB provider: Kirti Lizama PMH/ROS narrative: term labor, no complications. SROM. ASA Class: II Labs: Hct 31.8 % (36-46) L 12/05/20 11:20 Plt Count 153 X10^3/uL (150-400) 12/05/20 11:20 Medications: Current Medications Generic Name Dose Route Start Last Admin Trade Name Freq PRN Reason Stop Dose Admin Calcium Carbonate 1,000 mg 12/05/20 10:32 Calcium Carbonate 500 Mg Tab PO Q2HR PRN Dyspepsia Carboprost Tromethamine 250 mcg 12/05/20 10:32 Carboprost 250 Mcg/Ml Ampul IM Q90M PRN Bleeding Fentanyl 100 mcg 12/05/20 10:32 Fentanyl 100 Mcg/2 Ml Inj IV Q1H PRN Pain, Severe (7-10) Lactated Ringer's 1,000 mls @ 100 mls/hr 12/05/20 10:45 12/05/20 11:45 Lactated Ringers IV 100 mls/hr CONT JACINTA Administration Oxytocin/Lactated Ringer's 30 unit in 500 mls @ 200 mls/hr 12/05/20 10:32 Oxytocin Premix IV CONT PRN Bleeding Protocol Tranexamic Acid 1,000 mg/ 100 mls @ 200 mls/hr 12/05/20 10:32 Sodium Chloride IV NOW PRN Bleeding Oxytocin/Lactated Ringer's 30 unit in 500 mls @ 1 mls/hr 12/05/20 12:15 12/05/20 12:17 Oxytocin Premix IV 1 milliunit/min TITRATE JACINTA 1 mls/hr Administration Protocol 1 MILLIUNIT/MIN Methylergonovine Maleate 0.2 mg 12/05/20 10:32 Methylergonovine 0.2 Mg/Ml Vial IM NOW PRN Bleeding Methylergonovine Maleate 0.2 mg 12/05/20 10:32 Methylergonovine 0.2 Mg Tablet PO Q6HR PRN Heavy Bleeding Misoprostol 1,000 mcg 12/05/20 10:32 Misoprostol 200 Mcg Tablet TX NOW PRN Bleeding Misoprostol 400 mcg 12/05/20 10:32 Misoprostol 200 Mcg Tablet SL NOW PRN Bleeding Misoprostol 800 mcg 12/05/20 10:32 Misoprostol 200 Mcg Tablet TX NOW PRN Bleeding Naloxone HCl 0.2 mg 12/05/20 10:32 Naloxone 0.4 Mg/Ml Vial IV Q2MIN PRN Opiate Reversal Ondansetron HCl 4 mg 12/05/20 10:32 Ondansetron 4 Mg/2 Ml Inj IV Q4HR PRN Nausea And Vomiting Oxytocin 10 unit 12/05/20 10:32 Oxytocin 10 Unit/Ml Vial IM NOW PRN Bleeding Allergies: Allergies Allergy/AdvReac Type Severity Reaction Status Date / Time No Known Drug Allergies Allergy Verified 09/10/20 09:06 Procedure Insertion date: 12/05/20 Insertion time: 18:00 Prep/Local: betadine x3 and 1% lidocaine Interspace: L3-4 Patient position: sitting Needle: 18 gauge ClickHome (CSE: 27g Pencan through Hustead, clear CSF, 1mL 0.25% MPF bupivacaine) Loss of resistance with: saline MOMO at (cm): 5 Catheter placed at SKIN (cm): 10 Catheter in SPACE (cm): 5 Insertion: No CSF, No Blood, No Paresthesia with insertion, No Paresthesia with injection and No Test dose reaction Initial Medications TEST DOSE time: 18:02 TEST DOSE: 1.5% lidocaine with epinephrine 1:200k (mL): 3 BOLUS DOSE time: 18:12 BOLUS DOSE (mL): 3 BOLUS DOSE med: other (infusate) Infusion Initial rate (mL/hr): 8 Post-procedure Anesthesia time START: 17:51 Anesthesia time END: 20:19 Post-procedure Anesthesia Assessment: Yes CV function: HR/BP stable, Yes Resp function: RR/sat/airway adequate, Yes Mental status appropriate and No Anesthesia complications
--- NOTE | 2020-12-05 20:55 | PM.OBPRVD ---
Events: Labor Augmentation and Premature Rupture Membrane Labor & Delivery Delivery date: 12/05/20 Delivery augmentation: pitocin Delivery monitor: external FHT and external uterine Route of delivery: L&D Laceration Description: Perineal - 1st Degree Delivery repair: chromic (3 0) Estimated blood loss (mL): 300 Anesthesia Type: Epidural Narrative: Patient has spontaneous rupture membranes at 6:00 a.m.. She arrived on Labor and delivery and was not in active labor. Decision was made to augment labor with Pitocin. She received an epidural catheter for pain control. heart tones category 1 to category 2 throughout labor. Patient had a spontaneous vaginal delivery over an intact perineum. The viable female infant was placed on maternal abdomen. After the cord stopped pulsating the cord was clamped, cut, and cord bloods obtained. The placenta delivered spontaneously, intact, with 3 vessels. There were no cervical or vaginal tears. A first-degree perineal tear was repaired with 3 0 chromic suture. Estimated blood loss 300 cc. Both mother doing well. Baby 1: gender: Female Presentation: vertex Position: Right Occiput Anterior Placenta delivery description: Spontaneous Cord Vessel Description: 3 Vessels score (1 min): 9 score (5 min): 9 weight: 8 lb 6 oz Plan for aftercare: Routine care
[2020-12-05] MEDS: IBUPROFEN 600 MG TABLET PO (21:53)
[2020-12-06] MEDS: ACETAMINOPHEN 325 MG TABLET 650 MG PO ×3 (00:51→13:27)
[2020-12-06] MEDS: IBUPROFEN 600 MG TABLET PO ×2 (04:08→13:27)
[2020-12-06 07:28] LABS: Add Manual Diff / Slide Review NO; Basophils Absolute Auto 0 /uL (0-100); Basophils Percent Auto 0.2 % (0-2); Eosinophils Absolute Auto 0 /uL (0-450); Eosinophils Percent Auto 0.3 % (2-4); Hematocrit 29.5 % (36-46); Hemoglobin 9.7 g/dL (12.0-16.0); Lymphocytes Absolute Auto 2200 /uL (1100-4500); Lymphocytes Percent Auto 22.7 % (25-40); Mean Corpuscular HGB Conc 32.8 % (30-36); Mean Corpuscular Hemoglobin 27.7 PG (26-34); Mean Corpuscular Volume 84.3 fL (80-100); Monocytes Absolute Auto 800 /uL (0-900); Neutrophils Absolute Auto 6700 /uL (1500-7000); Neutrophils Percent Auto 68.8 % (50-75); Platelet Count 117 X10^3/uL (150-400); Red Cell Distribution Width 13.9 % (11.6-14.8); White Blood Cell Count 9.8 X10^3/uL (4.5-11.0)
[2020-12-06] MEDS: FERROUS SULFATE 325 MG TABLET PO (10:00)
--- NOTE | 2020-12-06 11:15 | P.DS_ITS ---
Discharge Providers Provider Date of admission: 12/05/20 09:52 Discharge Date: 12/06/20 Primary care physician: Kendell Levine DO Consults: 12/05/20 10:32 Consult to Anesthesiology Urgent Comment: Consulting Provider: Anesthesiologist Reason for consultation: epidural Has provider been notified: No 12/06/20 20:53 Consult to Control Chemist Routine Comment: Discharge provider: Kirti Lizama MD Summary Hospital Course Date Patient Seen: 12/06/20 Time Patient Seen: 11:15 Diagnoses: 38 week gestation with spontaneous vaginal delivery Hospital Course: Patient arrived on Labor and delivery after spontaneous rupture membranes. She does not go into active labor so Pitocin augmentation was begun. Patient received an epidural catheter for pain control. She had a spontaneous vaginal delivery with repair of a first-degree perineal tear. Patient is urinating and ambulating well. Tolerating regular diet. She denies headaches, scotomata, epigastric pain. Bleeding is minimal. Time Spent with Patient Time attestation: Total time spent providing and/or coordinating discharge services: Objective Labs Result Diagrams: 12/06/20 07:03 Labs: Laboratory Results - last 24 hr 12/05/20 12/05/20 12/05/20 11:00 11:20 11:20 WBC 8.7 RBC 3.79 L Hgb 10.3 L Hct 31.8 L MCV 83.8 MCH 27.0 MCHC 32.3 RDW 14.2 Plt Count 153 Neut % (Auto) 73.7 Lymph % (Auto) 17.0 L [place] % (Auto) 8.3 Eos % (Auto) 0.1 L Baso % (Auto) 0.9 Neut # (Auto) 6400 Lymph # (Auto) 1500 [place] # (Auto) 700 Eos # (Auto) 0 Baso # (Auto) 100 SARS-CoV-2 (PCR) Negative Blood Type A Positive Antibody Screen Negative 12/06/20 07:03 WBC 9.8 RBC 3.50 L Hgb 9.7 L Hct 29.5 L MCV 84.3 MCH 27.7 MCHC 32.8 RDW 13.9 Plt Count 117 L Neut % (Auto) 68.8 Lymph % (Auto) 22.7 L [place] % (Auto) 8.0 Eos % (Auto) 0.3 L Baso % (Auto) 0.2 Neut # (Auto) 6700 Lymph # (Auto) 2200 [place] # (Auto) 800 Eos # (Auto) 0 Baso # (Auto) 0 SARS-CoV-2 (PCR) Blood Type Antibody Screen Exam Vital Signs (past 8 hours): Blood pressure 124/83, pulse 78, temperature 98.8? Narrative Exam Narrative: Abdomen is soft, nontender. Uterus is firm, at U, minimally tender. Mild lochia. Repair is intact. Extremities without edema and nontender. Patient is Rh positive, rubella immune, she received Tdap in the 3rd trimester. Discharge Plan Discharge Plan Patient Disposition: Home Discharge orders & Medications Prescriptions: New ibuprofen 600 mg Tablet 600 mg PO Q6HR PRN (Reason: Pain, Mild (1-3)) Qty: 20 RF: 0 Continued prenat.vits,jackson,[id number] Tablet 1 tab PO DAILY RF: 0 omeprazole 40 mg capsule,delayed release(DR/EC) 40 mg PO DAILY Qty: 30 RF: 1 Follow up/Referrals: Kendell Levine DO [Primary Care Provider] - Kirti Lizama MD [Physician] - 1 Month Diet/Activity/Treatments Diet: Diet as Tolerated Activity: Nothing in vagina until after post appointment Skin/Wound/Dressing Care Report to your healthcare provider any signs of infection, such as:: chills, fever and increased pain Discharge Data Primary Care Provider: Kendell Levine Attending Provider: Kirti Lizama
[2020-12-06 12:51] VITALS: BP 125/80; PULSE 88; RESP 18; TEMP 36.9
== END 2020-12-06 18:30 | disposition home or self-care (01) | DRG 560 ==
PROVIDERS: Admitting Provider Specialist; PCP Family Medicine; Referring Provider Specialist; Visit Provider Specialist
DX: O42.02 Full-term premature rupture of membranes, onset of labor within 24 hours of rupture (principal); Z3A.39 39 weeks gestation of pregnancy; Z37.0 Single live birth; Z20.822 Contact with and (suspected) exposure to COVID-19; O70.0 First degree perineal laceration during delivery
CPT/HCPCS: 01967; 36415; 59050; 59409; 84112; 85025; 86850; 86900; 86901; 87635; C9803; G0378; G0379; J2590

== ENCOUNTER → 2020-12-27 17:13 | Outpatient (CLI) | payer OTHER, MEDICAID, SELFPAY ==
[2020-12-27 17:36] LABS: COVID19 -Nasal RAPID Negative (Negative)
== END ==
PROVIDERS: PCP Family Medicine; Referring Provider Physician Assistant; Visit Provider Physician Assistant
DX: Z20.822 Contact with and (suspected) exposure to COVID-19 (principal)
CPT/HCPCS: 87635

== ENCOUNTER → 2021-05-13 08:40 | Outpatient (CLI) | payer OTHER, SELFPAY ==
[2021-05-13 13:45] LABS: COVID19 -Nasal RAPID Negative (Negative)
== END ==
PROVIDERS: PCP Family Medicine; Visit Provider Nurse Practitioner Family
DX: Z20.822 Contact with and (suspected) exposure to COVID-19 (principal); R52 Pain, unspecified
CPT/HCPCS: 87635

== ENCOUNTER → 2024-05-19 10:40 | Outpatient (CLI) | payer BC, SELFPAY | PROVIDERS: PCP Family Medicine; Visit Provider Nurse Practitioner Family | DX: J02.9 Acute pharyngitis, unspecified (principal) | CPT/HCPCS: 87070 ==